=== PATIENT | male | born 1980 | race Caucasian/White ===

== ENCOUNTER 2019-10-21 14:14 | Emergency (ER) | payer BC, SELFPAY ==
[2019-10-21] MEDS ORDERED: Promethazine HCl 25 MG/ML VIAL ONE (14:40)
[2019-10-21 15:15] LABS: #Lymphocytes 0.4 thou/uL (1.20-3.40); #Monocytes 0.3 thou/uL (0.11-0.59); #Neutrophils 9.4 thou/uL (1.40-6.50); %Basophils 0.1 % (0.0-1.0); %Eosinophils 0.3 % (0.0-10.0); %Lymphocytes 4.2 % (21.0-51.0); %Monocytes 2.9 % (0.0-10.0); %Neutrophils 92.6 % (42.0-75.0); Hemoglobin 14.4 g/dL (14.0-18.0); Mean Corpuscular Hemoglobin 27.3 pg (27.0-31.0); Mean Corpuscular Volume 85.4 fL (78.0-98.0); Mean Platelet Volume 8.7 fL (7.4-10.4); Platelet Count 182 thou/uL (130-400); RBC Distribution Width 12.9 % (11.5-14.5); Red Blood Cell (RBC) Count 5.26 mill/uL (4.70-6.10); White Blood Cell (WBC) Count 10.1 thou/uL (4.8-10.8)
[2019-10-21 15:33] LABS: Bilirubin Negative (Negative); Blood, Urine Negative (Negative); Clarity Clear (Clear); Glucose, Urine (Dipstick) Normal (Negative); Leukocyte Negative Leu/uL (Negative); Nitrite Negative (Negative); Protein, Urine (Dipstick) 10 mg/dL (Neg-Trace); Urobilinogen Normal mg/dL (Less than 2)
[2019-10-21 15:37] LABS: ALT (SGPT) 35 U/L (8-55); AST (SGOT) 20 U/L (5-34); Albumin 4.2 g/dL (3.5-5.0); Alkaline Phosphatase 86 U/L (40-110); Anion Gap 12 mmol/L (10-20); BUN (Urea Nitrogen) 16 mg/dL (8.9-20.6); Bilirubin, Total 0.7 mg/dL (0.2-1.2); Calc. Creatinine Clearance 0 mL/min (70-130); Carbon Dioxide 27 mmol/L (22-29); Chloride 105 mmol/L (98-107); Estimated GFR-MDRD 85; Globulin 2.8 g/dL (2.4-3.5); Glucose 177 mg/dL (70-105); Lipase 12 U/L (8-78); Sodium 139 mmol/L (136-145)
[2019-10-21] MEDS ORDERED: Morphine 4 MG/ML VIAL ONE (15:47)
[2019-10-21] MEDS ORDERED: Acetaminophen 500 MG TAB ONE (16:42)
== END 2019-10-21 17:15 | disposition home or self-care (01) ==
LOC: ERS 14:14
DX: R10.84 Generalized abdominal pain (principal); R11.2 Nausea with vomiting, unspecified; R19.7 Diarrhea, unspecified; E66.01 Morbid (severe) obesity due to excess calories; E11.9 Type 2 diabetes mellitus without complications; F41.9 Anxiety disorder, unspecified; F32.9 Major depressive disorder, single episode, unspecified
CPT/HCPCS: 36415; 80053; 81003; 83690; 85025; 93005; 96361; 96374; 96375; J2270; J2550